=== PATIENT | male | born 1975 | race Caucasian/White ===

== ENCOUNTER 2018-10-15 10:58 | Emergency (ER) | payer SELFPAY ==
[~2018-10-15] VITALS: Ht 182.9 cm; Wt 74.8 kg
[2018-10-15 11:37] LABS: APPEARANCE,URINE Cloudy (CLEAR); BILIRUBIN,URINE SMALL (NEGATIVE); BLOOD, URINE Small Ery/uL (NEGATIVE); KETONES,URINE Trace (NEGATIVE); LEUKOCYTE ESTERASE ,URINE Small (NEGATIVE); NITRITE, URINE Positive (NEGATIVE); PH,URINE 5.5 (5.0-8.0); PROTEIN,URINE 100 mg/dl (NEGATIVE); UGLUCOSE Negative (NEGATIVE); UROBILINOGEN,URINE 0.2 EU/dL (0.2)
[2018-10-15 11:39] LABS: COLOR,URINE Dark Yellow (YELLOW)
--- NOTE | 2018-10-15 11:39 | NUR ---
PT BIBS AXOX3, NO GAIT DISTURBANCE, C/O OBJECT LODGED IN URETHRA X 1 WEEK, - PAIN, - BLEEDING, -DISCHARGE,
[2018-10-15 11:54] LABS: BACTERIA,URINE Few /HPF (None Seen); SQUAMOUS EPITHELIAL CELL,UR Few /HPF (None Seen); WBC,URINE 80-100 /HPF (0-3)
[2018-10-15] MEDS ORDERED: CEPHALEXIN MONOHYDRATE 500 MG CAPSULE PO ONE ×2 (13:05→13:30)
--- NOTE | 2018-10-15 13:57 | NUR ---
Patient discharged to home in stable condition. Written and verbal after care instructions given. Patient verbalizes understanding of instruction.
[2018-10-15 14:02] VITALS: BP 138/76
== END 2018-10-15 14:04 | disposition home or self-care (01) ==
LOC: ER 11:03
DX: S30.852A Superficial foreign body of penis, initial encounter (principal); N39.0 Urinary tract infection, site not specified; W45.8XXA Other foreign body or object entering through skin, initial encounter; Y93.89 Activity, other specified; Y92.89 Other specified places as the place of occurrence of the external cause; Y99.8 Other external cause status
CPT/HCPCS: 74176; 81001; 99284; A4606; Z7610; 81000-TC

== ENCOUNTER 2023-10-08 06:53 | Emergency (ER) | payer SELFPAY ==
[~2023-10-08] VITALS: Ht 190.5 cm; Wt 82.1 kg
[2023-10-08] MEDS ORDERED: CIPROFLOXACIN HCL 500 MG TABLET PO ONE (08:00)
[2023-10-08] MEDS ORDERED: CIPR-262 PO (08:19)
[2023-10-08] MEDS ORDERED: CIPROFLOXACIN HCL 500 MG TABLET ONE (08:24)
[2023-10-08 08:30] LABS: APPEARANCE,URINE CLEAR (CLEAR); BILIRUBIN,URINE NEGATIVE (NEGATIVE); BLOOD, URINE TRACE-INTA Ery/uL (NEGATIVE); COLOR,URINE YELLOW (YELLOW); KETONES,URINE NEGATIVE (NEGATIVE); LEUKOCYTE ESTERASE ,URINE 2+ (NEGATIVE); NITRITE, URINE NEGATIVE (NEGATIVE); PROTEIN,URINE NEGATIVE (NEGATIVE); UGLUCOSE NEGATIVE (NEGATIVE); UROBILINOGEN,URINE 0.2 EU/dL (0.2)
[2023-10-08 08:48] VITALS: BP 124/68; TEMP 98.2; O2SAT 100
[2023-10-08 09:33] LABS: ADD URINE CULTURE YES; BACTERIA,URINE Few /HPF (None Seen)
== END 2023-10-08 08:52 | disposition home or self-care (01) ==
LOC: ER 07:00
DX: N39.0 Urinary tract infection, site not specified (principal); Z60.2 Problems related to living alone
CPT/HCPCS: 81001; 87086-TC